=== PATIENT | male | born 1960 | race Caucasian/White ===

== ENCOUNTER 2018-03-26 13:30 | Emergency (ER) | payer BC ==
[2018-03-26] MEDS ORDERED: THROMBIN/GELATIN FOAM HEMOSTAT (THROMBI-GEL) TP ONE (13:41)
[2018-03-26] MEDS ORDERED: TOPICAL LIDOCAINE W/ EPI 5 ML TOP ONE (13:41)
[2018-03-26] MEDS ORDERED: TRANEXAMIC ACID 1,000 MG/10 ML ML TOP ONE (13:41)
--- NOTE | 2018-03-26 13:44 | Emergency Department Record ---
History of Present Illness - General Chief complaint: Extremity Problem Stated complaint: BLEEDING FROM RT LEG Time Seen by Provider: 03/26/18 13:39 Source: Patient Mode of Arrival: Ambulatory Limitations: No limitations - History of Present Illness Initial comments: 57 yo male presents with intermittent bleeding from a varicose vein. The onset was yesterday. He has a history of the same in the past. He wrapped it tightly yesterday with a coban. He is on Coumadin due to history of CAD with CABG. Complaint: Other (Varicose vein bleeding) -: Days(s) (1) Location: Right History of Same: Yes Radiation: Distal Consistency: Intermittent Improves with: Other (dressing and compression) Worsens with: Nothing Associated Symptoms: Denies other symptoms - Related Data Home Medications Medication Instructions Recorded Confirmed Last Taken Aspirin [Ecotrin] 81 mg PO DAILY 03/26/18 03/26/18 Unknown Atorvastatin Calcium 40 mg PO DAILY 03/26/18 03/26/18 Unknown Bumetanide [Bumex] 0.5 mg PO DAILY 03/26/18 03/26/18 Unknown Carvedilol [Coreg] 6.25 mg PO DAILY 03/26/18 03/26/18 Unknown Lisinopril 10 mg PO DAILY 03/26/18 03/26/18 Unknown Warfarin Sodium [Coumadin] 1 mg PO DAILY 03/26/18 03/26/18 Unknown Allergies Allergy/AdvReac Type Severity Reaction Status Date / Time Penicillins Allergy PT UNSURE Verified 03/26/18 13:42 OF REACTION Review of Systems Constitutional: Denies: Chills, Fever, Malaise, Weakness Eyes: Denies: Eye discharge ENT: Denies: Congestion Respiratory: Denies: Cough Cardiovascular: Denies: Chest pain, Palpitations, Syncope Endocrine: Denies: Fatigue Gastrointestinal: Denies: Abdominal pain, Diarrhea, Nausea, Vomiting Genitourinary: Denies: Dysuria, Frequency, Hematuria Musculoskeletal: Denies: Arthralgia, Joint swelling, Myalgia Skin: Reports: Other (varicose veins). Denies: Bruising, Change in color, Rash Neurological: Denies: Numbness, Tingling, Weakness Psychiatric: Denies: Anxiety Hematological/Lymphatic: Reports: Easy bleeding, Easy bruising. Denies: Blood Clots Physical Exam - General General Appearance: Alert, Oriented x3, Cooperative, No acute distress Limitations: No limitations - Head Head exam: Atraumatic - Eye Eye exam: Normal appearance. negative: Conjunctival injection - ENT ENT exam: Normal exam Ear exam: Normal external inspection Nasal Exam: Normal inspection Mouth exam: Normal external inspection - Neck Neck exam: Normal inspection - Respiratory Respiratory exam: Normal lung sounds bilaterally. negative: Respiratory distress - Cardiovascular Cardiovascular Exam: Regular rate, Normal rhythm, Normal heart sounds - Rectal Rectal exam: Deferred - exam: Deferred - Extremities Extremities exam: negative: Normal inspection (varicose veins), Calf tenderness , Tenderness Image of Full Body: 1 - small oozing varicose vein - Neurological Neurological exam: Alert, Oriented X3 - Psychiatric Psychiatric exam: Normal affect, Normal mood. negative: Agitated, Anxious - Skin Skin exam: Other (varicose vein with oozing) Course - Reevaluation(s) Reevaluation #1: 03/26/18 14:05 A small oozing varicose vein was noted on the anterior davies. The area was prepped in sterile fashion. Lidocaine with Epi injected. Chronic gut 5-0 suture use to achieve hemostasis. A thrombigel pad with TXA was placed as well with a clear dressing. No bleeding. 03/26/18 14:47 Mild anemia of 10.5 on the CBC The INR is 1.3 On recheck there is no bleeding through the dressing. 03/26/18 14:59 The K was 6.0 with CR of 1.5 and a GFR of 51. No prior labs on the EMR. The patient was informed. He is unsure of prior renal labs. 03/26/18 14:59 With mild changes in the renal CR and GFR his elevated K will likely resolve with some hydration and recheck. I offered IV fluids, recheck of labs in the ED. The patient declined. We discussed the risks and need for close monitoring of the renal functions. We discussed his diet, renal function and labs and the importance of having this rechecked in the next 1-2 days preferably tomorrow. He was informed he could return to this ER for that as well. I discussed hydration with water the next 2-3 days. He had been hydrating with tomato juice which is high in potassium. He was instructed to avoid the tomato juice and call his doctor tomorrow for a recheck if unwilling to remain her for some fluids and a recheck. 03/26/18 15:07 03/26/18 15:31 Medical Decision Making - Lab Data Result diagrams: 03/26/18 14:25 03/26/18 14:25 Disposition Disposition: Discharge Clinical Impression: Varicose vein of leg, Renal insufficiency Disposition: Home, Self-Care Condition: (1) Good Instructions: Stasis Dermatitis (ED) Additional Instructions: Call your family doctor. Call to schedule the next available appointment for a recheck, tomorrow if possible. Return to ED if your symptoms worsen or if you have any new concerns. Review the final Emergency Record and test results with your doctor on follow up Return to the ED if you have any recurrence of bleeding. Leave the dressing on the next 2 days. Do not pull the GelFoam off. It will gradually come off on its own. Avoid the tomato juice as it is high in potassium. You will need your lab rechecked in the next 1-3 days with your doctor. Forms: Patient Portal Access Time of Disposition: 14:49 Quality - Quality Measures Quality Measures: N/A - Blood Pressure Screening Does Patient Have Any of the Following: Active Dx of HTN Blood Pressure Classification: Pre-Hypertensive BP Reading Systolic Measurement: 118 Diastolic Measurement: 83 Screening for High Blood Pressure: Patient Exclusion, Hx of HTN [G9744]
[2018-03-26 14:30] LABS: BASO % 0.3 % (0-6); EOS % 1.7 % (0-6); GRAN % 62.7 % (47-80); HEMATOCRIT 33.8 % (42.0-52.0); HEMOGLOBIN 10.5 gm/dl (14.0-18.0); LYMPH % 24.4 % (16-45); MEAN CELL VOLUME 84.9 fl (81-97); MEAN CORPUSCULAR HGB CONC 31.1 g/dl (32-36); MEAN PLATELET VOLUME 9.4 fl (7.4-10.4); MONO % 10.9 % (0-9); PLATELET COUNT 288 K/uL (130-400); RED BLOOD COUNT 3.98 M/uL (4.40-5.70); RED CELL DISTRIBUTION WIDTH 16.1 % (11.5-14.5)
[2018-03-26 14:31] LABS: MEAN CORPUSCULAR HEMOGLOBIN 26.3 pg (27-33)
[2018-03-26 14:42] LABS: INR 1.3; PARTIAL THROMBOPLASTIN TIME 26.8 SECONDS (24.5-39.1); PROTHROMBIN TIME (PATIENT) 12.5 SECONDS (9.5-12.1)
[2018-03-26 14:44] LABS: CREATININE 1.5 mg/dL (0.7-1.2)
== END 2018-03-26 15:28 | disposition home or self-care (01) ==
LOC: ER 13:30
DX: I83.91 Asymptomatic varicose veins of right lower extremity (principal); N28.9 Disorder of kidney and ureter, unspecified; I25.10 Atherosclerotic heart disease of native coronary artery without angina pectoris; I10 Essential (primary) hypertension; I48.91 Unspecified atrial fibrillation; Z79.01 Long term (current) use of anticoagulants; Z95.1 Presence of aortocoronary bypass graft
CPT/HCPCS: 12001 ×2; 99283; 99284; 85025; 85730; 85610; 80048; J3490